=== PATIENT | female | born 1975 | race Caucasian/White ===

== ENCOUNTER 2022-10-12 16:58 | Emergency (ER) | payer OTHER ==
[~2022-10-12] VITALS: Ht 172.7 cm; Wt 128.0 kg
[2022-10-12 17:18] VITALS: BP 160/112
[2022-10-12] MEDS ORDERED: ATEN-60 PO (20:09)
[2022-10-12] MEDS ORDERED: OLME40TA26 PO (20:09)
== END 2022-10-12 20:06 | disposition left against medical advice (07) ==
LOC: ER 16:58
DX: I10 Essential (primary) hypertension (principal); Z53.29 Procedure and treatment not carried out because of patient's decision for other reasons; Z98.890 Other specified postprocedural states
CPT/HCPCS: 93005

== ENCOUNTER 2023-08-26 16:30 | Emergency (ER) | payer OTHER ==
[~2023-08-26] VITALS: Ht 172.7 cm; Wt 122.2 kg
[~2023-08-26 16:30] MED LIST: ATEN-60 PO; OLME40TA78 PO
[2023-08-26 17:11] LABS: Basophils # (auto) 0 10 ^3/uL (0-0.2); Basophils % (auto) 0.2 % (0.0-2.0); Eosinophils # (auto) 0 10 ^3/uL (0-0.8); Hemoglobin 14.3 g/dL (12.2-16.2); Lymphocytes # (auto) 2.1 10 ^3/uL (0.4-5.4); Lymphocytes % (auto) 33.6 % (10.0-50.0); Mean Corpuscular Hemoglobin 32.1 pg (28.0-32.0); Mean Corpuscular Hgb Conc. 33.3 g/dL (32.0-36.0); Mean Corpuscular Volume 96.4 fL (80.0-100.0); Monocytes # (auto) 0.4 10 ^3/uL (0-1.3); Monocytes % (auto) 6.9 % (0.0-12.0); Neutrophils # (auto) 3.8 10 ^3/uL (1.6-8.6); Neutrophils % (auto) 59.3 % (37.0-80.0); Nucleated Red Blood Cells % 0.1 %; Red Blood Cells 4.46 10^6/uL (4.0-5.20); Red Cell Distribution Width 14.4 % (11.8-14.3); White Blood Cell 6.4 10^3/uL (4.4-10.8)
[2023-08-26 17:28] LABS: Alanine Aminotransferase 24 U/L (7-40); Albumin 4.5 g/dL (3.2-4.8); Alkaline Phosphatase 73 U/L (46-116); Anion Gap 6 (5-15); Aspartate Aminotransferase 23 U/L (13-40); BUN/Creatinine Ratio 11.7 (10.0-20.0); Bilirubin, Total 0.3 mg/dL (0.2-1.0); Blood Urea Nitrogen 13 mg/dL (9-23); Calcium 9.5 mg/dL (8.5-10.1); Carbon Dioxide 29 mmol/L (20-30); Chloride 106 mmol/L (98-107); Glucose 87 mg/dL (74-106); Potassium 4.4 mmol/L (3.5-5.1); Sodium 141 mmol/L (136-145); Total Protein 6.8 g/dL (5.7-8.2)
[2023-08-26] MEDS ORDERED: BACDST PO (18:48)
[2023-08-26 19:20] VITALS: BP 139/75; PULSE 82; RESP 18; TEMP 97.7
[2023-08-26 19:28] VITALS: O2SAT 98
== END 2023-08-26 19:32 | disposition home or self-care (01) ==
LOC: ER 16:30
DX: L03.115 Cellulitis of right lower limb (principal); I10 Essential (primary) hypertension; Z85.9 Personal history of malignant neoplasm, unspecified; Z79.899 Other long term (current) drug therapy
CPT/HCPCS: 36415; 80053; 85025; 93971